=== PATIENT | female | born 1985 | race Caucasian/White ===

== ENCOUNTER 2016-05-08 10:52 | Emergency (ER) | payer OTHER ==
[~2016-05-08] VITALS: Wt 86.2 kg
[2016-05-08] MEDS ORDERED: Motrin,Rufen800 MG PO ×2 (11:40→11:42)
[2016-05-27] MEDS ORDERED: TAMIFLU 75MG CA75 MG PO (13:27)
== END 2016-05-08 11:47 | disposition home or self-care (01) ==
LOC: ED 10:52
DX: G56.01 Carpal tunnel syndrome, right upper limb (principal); Z98.890 Other specified postprocedural states

== ENCOUNTER → 2020-04-26 | Outpatient (CLI) | payer SELFPAY ==
[~2020-04-26] MED LIST: Motrin,Rufen800 MG PO; TAMIFLU 75MG CA75 MG PO
== END | disposition home or self-care (01) ==
LOC: COVID19 10:55
PROVIDERS: ATTEND Obstetrics & Gynecology
DX: Z20.828 Contact with and (suspected) exposure to other viral communicable diseases (principal)

== ENCOUNTER 2021-02-16 10:46 | Emergency (ER) | payer OTHER ==
[~2021-02-16] VITALS: Ht 157.4 cm; Wt 95.3 kg
== END 2021-02-16 13:04 | disposition home or self-care (01) ==
LOC: ED 10:46
DX: U07.1 COVID-19 (principal); J12.82 Pneumonia due to coronavirus disease 2019

== ENCOUNTER 2021-02-18 08:38 | Emergency (ER) | payer OTHER ==
[~2021-02-18] VITALS: Ht 157.4 cm; Wt 95.3 kg
[2021-02-18] MEDS ORDERED: PREDNISONE50 MG PO (09:48)
== END 2021-02-18 10:15 | disposition home or self-care (01) ==
LOC: ED 08:38
DX: U07.1 COVID-19 (principal); J12.82 Pneumonia due to coronavirus disease 2019

== ENCOUNTER 2022-12-29 21:47 | Emergency (ER) | payer OTHER ==
[~2022-12-29] VITALS: Ht 157.4 cm; Wt 97.5 kg
[~2022-12-29 21:47] MED LIST changes: +PREDNISONE50 MG PO
== END 2022-12-29 23:33 | disposition home or self-care (01) ==
LOC: ED 21:47
DX: S93.401A Sprain of unspecified ligament of right ankle, initial encounter (principal); Z90.49 Acquired absence of other specified parts of digestive tract; Z98.890 Other specified postprocedural states; X50.3XXA Overexertion from repetitive movements, initial encounter; Y93.01 Activity, walking, marching and hiking; Y92.89 Other specified places as the place of occurrence of the external cause; Y99.8 Other external cause status